=== PATIENT | male | born 1930 | race Caucasian/White ===

== ENCOUNTER 2017-06-20 09:30 | Day surgery (SDC) | payer MEDICARE ==
[2017-06-19 12:40] VITALS: BMI 29.9
[2017-06-20 10:51] LABS: PTT 33.4 SEC (22.9-36.1); Prothrombin Time 15.9 SEC (12.0-14.7)
[2017-06-20] MEDS ORDERED: CEFAZOLIN/Water 2 GM/20 ML SYRINGE ONE (10:59)
[2017-06-20 11:01] LABS: Anion Gap 12 mmol/L (10-20); BUN (Urea Nitrogen) 21 mg/dL (8.4-25.7); Calc. Creatinine Clearance 70 mL/min (70-130); Calcium 9.5 mg/dL (7.8-10.44); Carbon Dioxide 24 mmol/L (23-31); Chloride 106 mmol/L (98-107); Estimated GFR-MDRD 75
[2017-06-20 11:08] LABS: #Eosinphils 0.3 thou/uL (0.0-0.7); #Lymphocytes 1.4 thou/uL (1.20-3.40); #Monocytes 0.5 thou/uL (0.11-0.59); #Neutrophils 4.4 thou/uL (1.40-6.50); %Basophils 0.3 % (0.0-1.0); %Eosinophils 4.2 % (0.0-10.0); %Lymphocytes 21.4 % (21.0-51.0); Hematocrit 42.9 % (42.0-52.0); Mean Platelet Volume 8.8 fL (7.4-10.4); Red Blood Cell (RBC) Count 4.27 mill/uL (4.70-6.10); White Blood Cell (WBC) Count 6.7 thou/uL (4.8-10.8)
[2017-06-20] MEDS ORDERED: Fentanyl 100 MCG/2 ML VIAL ONE (14:00)
[2017-06-20] MEDS ORDERED: Bupivacaine PF 0.5% 30 ML VIAL ONE (14:04)
[2017-06-20] MEDS ORDERED: Bacitracin Zinc Ointment 30 gm TUBE ONE (14:04)
[2017-06-20] MEDS ORDERED: Propofol 200 MG/20 ML VIAL ONE (14:31)
[2017-06-20] MEDS ORDERED: Betamet Acet/Betamet Na Ph 30 MG/5 ML VIAL ONE (14:34)
--- NOTE | 2017-06-21 00:23 | OP ---
DATE OF PROCEDURE: 06/20/2017 PREOPERATIVE DIAGNOSIS: Left carpal tunnel syndrome. POSTOPERATIVE DIAGNOSIS: Left carpal tunnel syndrome. PROCEDURES PERFORMED: 1. Carpal tunnel release. 2. Application of Celestone drip technique around the median nerve. FINDINGS: A 2-cm area of stippling and hourglass formation with flattening of the median nerve kylee cative of severe compression and the transcarpal ligament is very tight over this region. ANESTHESIA: Propofol with 12 mL of 0.5% Marcaine block very effective intraop. INDICATION: Failed conservative treatment, positive exam of electrodiagnostic for carpal tunnel syn drome. DESCRIPTION OF PROCEDURE: After successful propofol followed by subcutaneous 12 mL of 0.5% Marcaine block given varsha-incisional before prepping and draping, the block became effective while prepping and draping was accomplished. We then had a timeout, was indicated the left side was the correct si de. We then made an incision in line with the ring finger, medial, lateral, as far distal as Peacock's ca rdinal line as far proximal as 6 mm distal to volar wrist flexion crease. This was carried through skin and subcutaneous tissue until we saw the palmaris longus. We then dissected the soft tissue fr ee from the midportion of the transcarpal ligament distally and released it with a combination of Be aver blade and scissors under direct visualization. We then performed the same technique from the m idportion proximally, spreading, and then released a very tight band in the region of the hamate. From here, we could visualize the 2 cm of stippling with hourglass formation with flattening of the median nerve seen in the mid and distal third of the transverse carpal ligament. The nerve was comp letely free and we Celestone over the area of the color changes. We then obtained hemostasis and released the tourniquet, closed the incision with 4-0 nylon in an interrupted mattress pattern a nd a bulky dressing was applied. He left the operating room without complications.
== END 2017-06-20 16:10 | disposition home or self-care (01) ==
LOC: SDC 09:30
PROVIDERS: ATTEND Orthopaedic Surgery Hand Surgery
PROC: 01N50ZZ Release Median Nerve, Open Approach (ICD-10-PCS; principal; 2017-06-20)
DX: G56.02 Carpal tunnel syndrome, left upper limb (principal); I10 Essential (primary) hypertension; I48.91 Unspecified atrial fibrillation; I35.0 Nonrheumatic aortic (valve) stenosis; C61 Malignant neoplasm of prostate; Z79.01 Long term (current) use of anticoagulants; Z79.899 Other long term (current) drug therapy; Z95.0 Presence of cardiac pacemaker; Z98.890 Other specified postprocedural states
CPT/HCPCS: 36415; 80048; 85025; 85610; 85730; J0702; J2704; J3010; S0020